=== PATIENT | female | born 1935 | race Caucasian/White ===

== ENCOUNTER → 2018-12-01 | Outpatient (CLI) | payer OTHER, MEDICARE ==
[~2018-12-01] VITALS: Ht 165.1 cm; Wt 59.0 kg
[~2018-12-01] MED LIST: ARICEPT 5 MG TAB5 MG PO; CHOLESTEROL MED; DICLOFENAC SODI25 MG PO; LORAZEPAM 0.50.5 MG PO; UNICOMPLEX M TA1 TA1 PO; VITAMIN C500 M2 PO; VYTORIN 10-401 EACH PO; ZOCOR20 MG PO; ZYRTEC-D TABLE1 EAC1 PO
[2018-12-01 06:53] VITALS: BP 137/69
--- NOTE | 2018-12-01 08:52 | TEE ---
[facility] [address] [address] TRANSESOPHAGEAL ECHOCARDIOGRAM Name: KYLEIGHKIMBERLI B Room #: REG [facility] [id number] Admission: 12/01/18 Attend Phys: Rohan Rao MD Discharge: Date of : 31 Date of Service: 12/01/18 0852 Report #: [id number] THIS REPORT FOR: //name// APPROVED REPORT Study performed: 12/01/2018 07:52:06 EXAM: Comprehensive 2D, Doppler, and color-flow Echocardiogram Patient Location: Out-Patient Status: routine BSA: 1.65 HR: 75 bpm BP: 140/84 mmHg Rhythm: NSR Other Information Study Quality: Adequate Indications Aortic Valve Disease Echo Enhancing Agent Indication: Rule out Shunt Agent(s) / Amount(s) Used: Agitated Saline 6 cc Procedure After obtaining informed consent, patient underwent transesophageal echo in the [facility]. Type of Sedation : Conscious Sedation Sedation was achieved intravenously with: Versed (2) Fentanyl (50) Transesophageal probe was inserted and advanced into esophagus without difficulty by Salomón Hernandez MD. The TANYA was performed without complications. Throughout the procedure, the blood pressure, pulse oximetry, cardiac rhythm, and rate were monitored. The patient tolerated the procedure without adverse effects. Recovery from conscious sedation was uneventful and vital signs were stable. Left Ventricle The left ventricle is normal size. There is normal LV segmental wall motion. Basal septal hypertrophy is present. Mild concentric left ventricular hypertrophy Left ventricular systolic function is normal. [facility] [address] [place] [address] TRANSESOPHAGEAL ECHOCARDIOGRAM Name: KYLEIGHKIMBERLI B Room #: REG [facility].#: [id number] Admission: 12/01/18 Attend Phys: Rohan Rao MD Discharge: Date of : 31 Date of Service: 12/01/18 0852 Report #: [id number] LVEF is 55-60%. Right Ventricle The right ventricle is normal size. The right ventricular systolic function is normal. Atria Left atrium is dilated. No thrombus is visualized in the left atrium or appendage. No shunting noted by contrast bubble injection. Right atrium is dilated. Aortic Valve Aortic valve is heavily calcified. Trace aortic regurgitation. Severe aortic stenosis. Transthoracic echo (10/26/18), peak pressure gradient was 105mmHg and mean of 65mmHg. Mitral Valve There is mild mitral annular calcification, mild leaflet calcification. Mild mitral regurgitation. Tricuspid Valve The tricuspid valve is normal in structure. Pulmonic Valve The pulmonary valve is normal in structure. Trace pulmonic regurgitation. Great Vessels The ascending aorta is mildly dilated (4.0cm). Mild scattered aortic atherosclerosis. IVC is normal in size and collapses >50% with inspiration. Pericardium There is no pericardial effusion. <Conclusion> Left ventricular systolic function is normal. Basal septal hypertrophy. Mild concentric left ventricular hypertrophy There is normal LV segmental wall motion. LVEF 55-60%. No shunting noted by contrast bubble injection. No thrombus is visualized in the left atrium or appendage. Aortic valve is heavily calcified. Severe aortic stenosis. Transthoracic echo (10/26/18), peak pressure gradient was 105mmHg and mean of 65mmHg. Trace aortic regurgitation. [facility] [address] [place] [address] TRANSESOPHAGEAL ECHOCARDIOGRAM Name: KIMBERLI ARIZMENDI Room #: REG [facility]#: [id number] Admission: 12/01/18 Attend Phys: Rohan Rao MD Discharge: Date of : 31 Date of Service: 12/01/18851 Report #: [id number] There is mild mitral annular calcification, mild leaflet calcification. Mild mitral regurgitation. The ascending aorta is mildly dilated (4.0cm). Mild scattered atherosclerosis. There is no pericardial effusion. <ELECTRONICALLY SIGNED> By: Salomón Hernandez MD, FACC 12/01/18851 1 1 Salomón Hernandez MD, FACC /INF
--- NOTE | 2018-12-06 09:09 | H ---
[facility] [place] [address] HISTORY AND PHYSICAL Name: KYLEIGHKIMBERLI Jerry Room #: REG [facility]#: [id number] Admission: 12/01/18 Attend Phys: Rohan Rao MD Discharge: Date of : 31 Report #: [id number] THIS REPORT FOR: //name// CC: FAM unknown Rohan Rao DATE OF SERVICE: 12/01/2018 ELECTIVE TRANSESOPHAGEAL ECHOCARDIOGRAM HISTORY OF PRESENT ILLNESS: This is a pleasant 83-year-old female who presents for elective transesophageal echocardiogram to assess for structural heart disease. The patient has a history of hypertension, aortic stenosis, hypercholesterolemia and dizziness. She had a possible TIA in 01/2017. Clinically, she exercises on a treadmill for 2 miles, three times a week. 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 She does report getting tired by the midafternoon. Recent echo revealed normal LV systolic function with a high gradient across the outflow tract, consistent with severe aortic stenosis; however, the valve appears not to be severe by visual assessment. The patient is here for a TE to better visualize the aortic valve and rule out subvalvular obstruction. ALLERGIES: PENICILLIN AND SULFA. MEDICATIONS: At home include aspirin, Soma, Voltaren, Aricept, simvastatin 20 mg. PAST MEDICAL HISTORY: Breast cancer; dizziness; edema; hypertension, borderline; hyperlipidemia; TIA and aortic stenosis. SOCIAL HISTORY: Negative for tobacco use. REVIEW OF SYSTEMS: A full 10-point review of systems performed. Only the pertinent positives and negatives are described in the HPI. PHYSICAL EXAMINATION: VITAL SIGNS: Blood pressure is 120/70, heart rate is 65 beats per minute. GENERAL APPEARANCE: An elderly-appearing female in no acute distress. HEENT: Normocephalic, atraumatic. Oral mucosa moist. NECK: Supple. LUNGS: Clear to auscultation. CARDIAC: Regular rate and rhythm, S1, S2 positive, 2/6 over systolic murmur, positive A2. ABDOMEN: Soft, nontender. EXTREMITIES: No cyanosis, no edema. [facility] [address] [place] [address] HISTORY AND PHYSICAL Name: KIMBERLI ARIZMENDI Room #: REG [facility]#: [id number] Admission: 12/01/18 Attend Phys: Rohan Rao MD Discharge: Date of : 31 Report #: [id number] ASSESSMENT AND PLAN: 1. Aortic stenosis, possibly severe. We will proceed with a TANYA to better visualize the aortic valve and subvalvular apparatus. 2. Hypercholesterolemia, tolerating statin therapy, offers no complaints of myalgias. 3. Edema, unchanged, continue with a low salt diet. 4. Borderline hypertension, continue with a low salt diet. <ELECTRONICALLY SIGNED> By: Rohan Rao MD 12/06/18 0909 [id number] Rohan Rao MD /nt
== END | disposition home or self-care (01) ==
LOC: CATH 06:10
DX: I08.0 Rheumatic disorders of both mitral and aortic valves (principal); I70.0 Atherosclerosis of aorta; I42.2 Other hypertrophic cardiomyopathy; I10 Essential (primary) hypertension; E78.5 Hyperlipidemia, unspecified; E78.00 Pure hypercholesterolemia, unspecified; Z88.0 Allergy status to penicillin; Z79.82 Long term (current) use of aspirin; Z85.3 Personal history of malignant neoplasm of breast; Z88.2 Allergy status to sulfonamides; Z79.899 Other long term (current) drug therapy; Z86.73 Personal history of transient ischemic attack (TIA), and cerebral infarction without residual deficits

== ENCOUNTER → 2019-06-27 | Outpatient (CLI) | payer OTHER, MEDICARE | LOC: SJCVC 10:04 | DX: I21.19 ST elevation (STEMI) myocardial infarction involving other coronary artery of inferior wall (principal); R94.31 Abnormal electrocardiogram [ECG] [EKG]; I35.0 Nonrheumatic aortic (valve) stenosis; I10 Essential (primary) hypertension; E78.00 Pure hypercholesterolemia, unspecified; Z79.82 Long term (current) use of aspirin ==

== ENCOUNTER → 2019-09-19 | Outpatient (CLI) | payer OTHER, MEDICARE | LOC: SJCVCIMAG 08:47 | DX: I08.2 Rheumatic disorders of both aortic and tricuspid valves (principal); R94.31 Abnormal electrocardiogram [ECG] [EKG]; E78.00 Pure hypercholesterolemia, unspecified; R53.83 Other fatigue; I10 Essential (primary) hypertension; Z79.899 Other long term (current) drug therapy ==

== ENCOUNTER → 2020-05-07 | Outpatient (CLI) | payer OTHER, MEDICARE | LOC: SJCVC 09:09 | PROVIDERS: ATTEND Internal Medicine Cardiovascular Disease | DX: I44.4 Left anterior fascicular block (principal); R94.31 Abnormal electrocardiogram [ECG] [EKG]; I10 Essential (primary) hypertension; E78.00 Pure hypercholesterolemia, unspecified; R53.83 Other fatigue; E78.5 Hyperlipidemia, unspecified; Z95.2 Presence of prosthetic heart valve; Z79.82 Long term (current) use of aspirin; Z79.899 Other long term (current) drug therapy; Z86.73 Personal history of transient ischemic attack (TIA), and cerebral infarction without residual deficits; Z82.49 Family history of ischemic heart disease and other diseases of the circulatory system ==

== ENCOUNTER → 2020-11-07 | Outpatient (CLI) | payer OTHER, MEDICARE | LOC: SJCVCIMAG 07:41 | PROVIDERS: ATTEND Internal Medicine Cardiovascular Disease | DX: R94.31 Abnormal electrocardiogram [ECG] [EKG] (principal); I08.1 Rheumatic disorders of both mitral and tricuspid valves; I11.9 Hypertensive heart disease without heart failure; E78.00 Pure hypercholesterolemia, unspecified; R60.9 Edema, unspecified; E78.5 Hyperlipidemia, unspecified; G62.9 Polyneuropathy, unspecified; R53.83 Other fatigue; Z95.2 Presence of prosthetic heart valve; Z86.73 Personal history of transient ischemic attack (TIA), and cerebral infarction without residual deficits; Z88.2 Allergy status to sulfonamides; Z88.0 Allergy status to penicillin; Z79.899 Other long term (current) drug therapy; Z79.82 Long term (current) use of aspirin ==

== ENCOUNTER → 2021-01-16 | Outpatient (CLI) | payer OTHER, MEDICARE | LOC: SJCVCIMAG 07:47 | PROVIDERS: ATTEND Internal Medicine Cardiovascular Disease | DX: R06.00 Dyspnea, unspecified (principal); I35.0 Nonrheumatic aortic (valve) stenosis; I10 Essential (primary) hypertension; E78.00 Pure hypercholesterolemia, unspecified; E78.5 Hyperlipidemia, unspecified; Z79.82 Long term (current) use of aspirin; Z79.899 Other long term (current) drug therapy; Z88.0 Allergy status to penicillin; Z88.2 Allergy status to sulfonamides ==